=== PATIENT | female | born 1990 | race Caucasian/White ===

== ENCOUNTER 2018-01-26 16:02 | Inpatient (IN) | payer OTHER ==
[2018-01-26] VITALS (19 sets, daily range): BP systolic 114–119; BP diastolic 71–78; PULSE 70–89; RESP 16–18; TEMP 97.7–98.1; O2SAT 99
[2018-01-26] MEDS ORDERED: SODIUM CHLOR 0.9% 1000 ML INJ 1,000 ML OTHER PRN (17:02)
[2018-01-26] MEDS ORDERED: CITRIC ACID-SODIUM CITRATE LIQ 30 ML UDC PO SCH (17:15)
[2018-01-26] MEDS ORDERED: LIDOCAINE HCL 1% 50 ML VIAL I-DERMAL PRN (17:15)
[2018-01-26] MEDS ORDERED: MINERAL OIL 10 ML VIAL TOPICAL PRN (17:15)
[2018-01-26] MEDS ORDERED: LIDOCAINE HCL 1% 50 ML VIAL INFIL PRN (17:15)
[2018-01-26] MEDS ORDERED: SODIUM CHLORID 0.9% 500 ML INJ 500 ML IV PRN (17:15)
[2018-01-26] MEDS ORDERED: OXYTOCIN 30 UNITS-500ML PREMIX 500 ML IV ONE (17:15)
[2018-01-26] MEDS ORDERED: ONDANSETRON HCL 4 MG/2 ML VIAL IV PUSH PRN (17:15)
--- NOTE | 2018-01-26 17:18 | HHI.HP ---
HPI Chief Complaint labor induction, postdates, oligohydramnios Date Seen: January 26, 2018 Travel History International Travel<30 Days: No Contact w/Intl Traveler<30Days: No Known Affected Area: No History of Present Illness HPI 27 yo G1 with EDC 01/25/18 presents today for routine OB visit, ultrasound for postdates, found to have oligohydramnios, RAVINDRA 4cm. Pt denies regular contractions, leakage of fluid, or vaginal bleeding. Endorses good movement. Pain minimal, 1/10 pressure in low pelvis. Weeks Gestation: 40 Para: 0 : 1 Last Menstrual Period: Apr 20, 2017 Miscarriage: 0 : 0 History Past Medical History Narrative Medical denies significant Obstetric History Obstetric History G1 = current, male Past Surgical History Narrative Surgical denies Family History Family History: Negative Social History Alcohol Use: No Tobacco Use: No Substance Abuse: No Allergies-Medications (Allergen,Severity, Reaction): Coded Allergies: No Known Allergies (Unverified , 01/26/18) Review of Systems General / Constitutional: Weight Gain, No: Fever, Chills, Other Eyes: No: Diploplia, Blurred Vision, Visual changes, Pain, Photophobia HENT: No: Headaches, Vertigo, Lightheadedness Cardiovascular: No: Irregular Rhythm, Chest Pain or Discomfort, Palpitations, Tachycardia, Syncope, Varicosities, Edema, Cyanosis Respiratory: No: Cough, Short of Breath, Other Gastrointestinal: No: Nausea, Vomiting, Diarrhea Genitourinary: Pelvic Pain (pressure), No: Decreased Urinary Output, Oliguria Musculoskeletal: No: Limited ROM, Weakness, Cramping, Edema, Pain Skin: No Rash, No Itching, No Dryness, No Lumps, No Change in Pigmentation, No Change in Nails, No Alopecia, No Lesions Neurologic: No: Weakness, Dizziness, Syncope, Focal Abnormalities, Coordination Problem, Headache, Slurred Speech, Seizures Psychiatric: No: Depression, Suicidal Ideations, Homicidal Ideation Endocrine: No: Heat Intolerance, Cold Intolerance, Polydipsia, Polyuria, Other Physical Exam Narrative GENERAL: Well-nourished, well-developed patient. SKIN: Warm and dry. HEAD: Normocephalic and atraumatic. EYES: No scleral icterus. No injection or drainage. ENT: No nasal drainage noted. Mucous membranes pink. Airway patent. NECK: Supple, trachea midline. No JVD. CARDIOVASCULAR: Regular rate and rhythm without murmurs, gallops, or rubs. RESPIRATORY: Breath sounds equal bilaterally. No accessory muscle use. BREASTS: deferred ABDOMEN/GI: Abdomen soft, non-tender, bowel sounds present, no rebound, no guarding Gravid to [41] weeks size Fundal Height: [-] GENITOURINARY: / posterior FHT's: Category:6/8 BPP in office, RAVINDRA 4cm, no breathing EXTREMITIES: No cyanosis or edema. BACK: Nontender without obvious deformity. No CVA tenderness. NEUROLOGICAL: Awake and alert. Motor and sensory grossly within normal limits. Five out of 5 muscle strength in all muscle groups. Normal speech. Caprini VTE Risk Assessment Caprini VTE Risk Assessment: No/Low Risk (score <= 1) VTE Pharm Contraindication: Epidural catheter Caprini Risk Assessment Model Point Value = 1 Point Value = 2 Point Value = 3 Point Value = 5 Age 41-60 Minor surgery BMI > 25 kg/m2 Swollen legs Varicose veins or History of unexplained or recurrent spontaneous Oral contraceptives or hormone replacement Sepsis (< 1 month) Serious lung disease, including pneumonia (< 1 month) Abnormal pulmonary function Acute myocardial infarction Congestive heart failure (< 1 month) History of inflammatory bowel disease Medical patient at bed rest Age 61-74 Arthroscopic surgery Major open surgery (> 45 min) Laparoscopic surgery (> 45 min) Malignancy Confined to bed (> 72 hours) Immobilizing plaster cast Central venous access Age >= 75 History of VTE Family history of VTE Factor V Leiden Prothrombin [id number] Lupus anticoagulant Anticardiolipin antibodies Elevated serum homocysteine Heparin-induced thrombocytopenia Other congenital or acquired thrombophilia Stroke (< 1 month) Elective arthroplasty Hip, pelvis, or leg fracture Acute spinal cord injury (< 1 month) Prophylaxis Regimen Total Risk Factor Score Risk Level Prophylaxis Regimen 0-1 Low Early ambulation 2 Moderate Order ONE of the following: *Sequential Compression Device (SCD) *Heparin 5000 units SQ BID 3-4 Higher Order ONE of the following medications: *Heparin 5000 units SQ TID *Enoxaparin/Lovenox 40 mg SQ daily (WT < 150 kg, CrCl > 30 mL/min) *Enoxaparin/Lovenox 30 mg SQ daily (WT < 150 kg, CrCl > 10-29 mL/min) *Enoxaparin/Lovenox 30 mg SQ BID (WT < 150 kg, CrCl > 30 mL/min) AND/OR *Sequential Compression Device (SCD) 5 or more Highest Order ONE of the following medications: *Heparin 5000 units SQ TID (Preferred with Epidurals) *Enoxaparin/Lovenox 40 mg SQ daily (WT < 150 kg, CrCl > 30 mL/min) *Enoxaparin/Lovenox 30 mg SQ daily (WT < 150 kg, CrCl > 10-29 mL/min) *Enoxaparin/Lovenox 30 mg SQ BID (WT < 150 kg, CrCl > 30 mL/min) AND *Sequential Compression Device (SCD) Data Data Vital Signs Reviewed: Yes Orders Orders Admit To Inpatient (01/26/18 ) Code Status (01/26/18 17:) Vital Signs (Adult) .Per protocol (01/26/18 17:02) Activity Oob Ad Arline (01/26/18 17:) Heart (01/26/18:) Amnioinfusion (01/26/18 17:) Urinary Catheter Management .ONCE (01/26/18 17:02) Diet Liquid (01/27/18 Breakfast) Lactated Ringer's 1000 Ml Inj (Lr 1000 M (01/26/18 17:02) Sodium Chlorid 0.9% 500 Ml Inj (Ns 500 M (01/26/18 17:15) Sodium Chlor 0.9% 1000 Ml Inj (Ns 1000 M (01/26/18 17:22) Lidocaine 1% Inj (50 Ml) (Xylocaine 1% I (01/26/18 17:15) Citric Acid-Sodium Citrate Liq (Bicitra (01/26/18 17:15) Ondansetron Inj (Zofran Inj) (01/26/18 17:15) Fentanyl Inj (Fentanyl Inj) (01/26/18 17:15) Fentanyl Inj (Fentanyl Inj) (01/26/18 17:15) Complete Blood Count With Diff (01/26/18 17:02) Hold Clot (01/26/18 17:02) Abo/Rh Blood Type (01/26/18:02) Urinalysis - C+S If Indicated (01/26/18 17:02) Drug Screen, Random Urine (01/26/18 17:02) Ob/Psych Drug Screen, Urine (01/26/18 17:02) Resp Oxygen Non Rebreathe Mask (01/26/18 ) ^ Epidural / Intrathecal Infus (01/26/18 17:02) Oxytocin 30 Units-500ml Premix (Pitocin (01/26/18 17:15) Lidocaine 1% Inj (50 Ml) (Xylocaine 1% I (01/26/18 17:15) Light Mineral Oil (Muri-Lube Oil) (01/26/18 17:15) Diet Regular Basic (01/26/18 Dinner) ^ Labor Induction (01/26/18 17:02) ^ Saline Lock (01/26/18 17:02) ^ Vaginal Insert (01/26/18 17:02) ^ Vaginal Lavage (01/26/18 17:02) Heart (01/26/18 17:02) Sodium Chlor 0.9% 1000 Ml Inj (Ns 1000 M (01/26/18 17:02) Dinoprostone Vag Insert (Cervidil Vag In (01/26/18 17:15) Inpatient Certification (01/26/18 ) Specimen To Be Collected PRN (01/26/18 17:02) Specimen To Be Collected PRN (01/26/18 17:02) Group B Strep: Negative Assessment/Plan Problem List: (1) Oligohydramnios in gaspar in third trimester ICD Codes: O41.03X0 - Oligohydramnios, third trimester, not applicable or unspecified Status: Acute Assessment and Plan 27 yo G1 with gaspar IUP at 40w1d by LMP c/w 7 wk sonogram, admit for labor induction due to oligohydramnios, post-due 1) IOL for oligo: will start with cervidil overnight and re-evaluate in AM for add'tl interventions as necessary; pt is aware of risks of induction including risk of failure, risk of need for , consents to any procedures as indicated 2) GBS neg 3) status: EFW 84%tile with AC 96%tile at 36 wks; pt aware may fail induction due to possible CPD Discharge Planning routine for 2-3d PP Yuli Edgar MD January 26, 2018 17:18
[2018-01-26] MEDS ORDERED: SODIUM CHLOR 0.9% 1000 ML INJ 1,000 ML IV PRN (17:22)
[2018-01-26] MEDS ORDERED: DINOPROSTONE 10 MG VAG INSERT VAGINAL ONE (18:00)
[2018-01-26 18:12] LABS: AMORPHOUS SEDIMENT, URINE RARE; BACTERIA, URINE RARE /hpf; BILIRUBIN, URINE NEG (NEG); BLOOD, URINE NEG (NEG); GLUCOSE,URINE NEG (NEG); KETONE, URINE 10 mg/dL (NEG); MUCUS URINE MANY /lpf (OCC); NITRITE,URINE NEG (NEG); SQUAMOUS EPITHELIAL CELL URINE 17 /hpf (0-5); URINE COLOR YELLOW (YELLW/STRAW); URINE LEUKOCYTE ESTERASE MOD (NEG)
[2018-01-26 18:14] LABS: AUTOMATED NEUTROPHIL # 8.1 TH/MM3 (1.8-7.7); BASOPHIL % 0.4 % (0.0-2.0); EOSINOPHIL # 0.2 TH/MM3 (0-0.4); HEMATOCRIT 34.5 % (35.0-46.0); HEMOGLOBIN 11.8 GM/DL (11.6-15.3); LYMPHOCYTE # 1.9 TH/MM3 (1.0-4.8); MEAN CELL VOLUME 87.9 FL (80.0-100.0); MEAN CORPUSCULAR HGB CONC 34.1 % (32.0-36.0); MEAN PLATELET VOLUME 8.7 FL (7.0-11.0); MONOCYTE # 0.9 TH/MM3 (0-0.9); NEUT % 72.6 % (16.0-70.0); PLATELET COUNT 309 TH/MM3 (150-450); RED BLOOD COUNT 3.92 MIL/MM3 (4.00-5.30); RED CELL DISTRIBUTION WIDTH 13.2 % (11.6-17.2); WHITE BLOOD COUNT 11.2 TH/MM3 (4.0-11.0)
[2018-01-26] MEDS: LACTATED RINGER'S 1000 ML INJ 1,000 ML IV PRN ×2 (18:16→23:17)
[2018-01-27] VITALS (52 sets, daily range): BP systolic 92–108; BP diastolic 56–64; PULSE 61–92; RESP 9–18; TEMP 97.9–98.5; O2SAT 98–100
--- NOTE | 2018-01-27 07:54 | PD.LABORPN ---
Subjective Subjective feeling some mild back pain, not feeling regular contractions currently, pain 2/ 10 Objective Vital Signs Vital Signs Date Time Temp Pulse Resp B/P (MAP) Pulse Ox O2 Delivery O2 Flow Rate FiO2 01/27/18 07:09 97.9 01/27/18 07:05 100 01/27/18 07:05 82 01/27/18 07:00 65 01/27/18 07:00 98 01/27/18 06:45 82 01/27/18 06:40 68 01/27/18 06:35 69 01/27/18 06:30 70 01/27/18 05:26 16 01/27/18 05:25 72 01/27/18 05:20 73 01/27/18 05:00 81 01/27/18 04:55 81 01/27/18 04:50 74 01/27/18 04:45 70 01/27/18 04:40 80 01/27/18 04:35 66 01/27/18 04:30 74 01/27/18 03:25 67 01/27/18 03:20 67 01/27/18 03:15 67 01/27/18 03:10 68 01/27/18 03:05 73 01/27/18 03:00 66 01/27/18 02:25 65 01/27/18 02:20 70 01/27/18 02:15 70 01/27/18 02:10 66 01/27/18 02:05 68 01/27/18 02:00 69 01/27/18 01:30 16 01/27/18 01:25 68 01/27/18 01:15 73 01/27/18 01:08 68 102/62 (75) 01/27/18 01:08 98.5 01/27/18 01:05 69 01/27/18 01:00 65 01/27/18 00:55 65 01/27/18 00:50 68 01/27/18 00:45 66 01/27/18 00:40 65 01/27/18 00:35 66 01/27/18 00:30 67 01/27/18 00:25 69 01/27/18 00:20 66 01/27/18 00:15 84 01/27/18 00:10 85 01/27/18 00:05 92 01/27/18 00:00 86 01/26/18 23:55 87 Objective Pelvic Exam: Cervix: [posterior] Dilatation: [3] Effacement: [50] Station: [-3] Presentation: [vtx] Membranes: AROM'd clear this check Uterine Contractions: [irregular on monitor; IUPC placed] FHT's: Category: [I] Baseline: [130s] Reactive: [y] Variability: [mod] Decels: [rare variables] Weeks Gestation: 40 Medical induction of labor?: Yes Medical induction start date: January 26, 2018 Artificial rupture of membrane: Yes Artificial ROM date: January 27, 2018 Assessment/Plan Problem List: (1) Oligohydramnios in gaspar in third trimester ICD Codes: O41.03X0 - Oligohydramnios, third trimester, not applicable or unspecified Status: Acute Assessment and Plan 27 yo G1 with gaspar IUP at 40w2d admit for term induction due to oligohydramnios 1) IOL: s/p cervidil x 6h overnight, was having recurrent variables so insert pulled early; tracing now Cat I, able to AROM and place IUPC this check, pitocin ordered 2) GBS neg 3) status: male, vertex, EFW 8.5# Yuli Edgar MD January 27, 2018 07:54
[2018-01-27] MEDS ORDERED: LACTATED RINGER'S 1000 ML INJ 1,000 ML IV PRN (09:00)
[2018-01-27] MEDS ORDERED: OXYTOCIN 30 UNITS-500ML PREMIX 500 ML IV PRN ×2 (09:00→18:15)
[2018-01-27] MEDS ORDERED: LACTATED RINGER'S 1000 ML INJ 1,000 ML IV SCH ×2 (09:00→18:14)
[2018-01-27] MEDS ORDERED: fentaNYL 2MCG-BUPIV 0.125% INJ 100 ML ONE (10:48)
[2018-01-27] MEDS ORDERED: ePHEDrine/NS 25 MG/5 ML SYRINGE ONE (10:48)
[2018-01-27] MEDS ORDERED: LIDOCAINE 2%/EPINEPHrine PF 1:200,000 20ML SDV ONE (10:53)
[2018-01-27] MEDS ORDERED: OXYTOCIN 10 UNIT/ML AMP IV ONE (12:00)
[2018-01-27] MEDS ORDERED: LIDOCAINE 2%/EPINEPHrine PF 1:200,000 20ML SDV OTHER ONE (12:00)
[2018-01-27] MEDS ORDERED: ceFAZolin INJ 1,000 MG VIAL IV ONE (12:00)
[2018-01-27] MEDS ORDERED: DEXAMETHASONE SOD PHOS 4 MG/ML VIAL IV ONE (12:00)
[2018-01-27] MEDS ORDERED: ONDANSETRON HCL 4 MG/2 ML VIAL IV ONE (12:00)
[2018-01-27] MEDS ORDERED: LACTATED RINGER'S 1000 ML INJ 1,000 ML IV ONE (12:00)
[2018-01-27] MEDS ORDERED: KETOROLAC TROMETHAMINE 30 MG/ML (IVP) VIAL IV PUSH ONE (12:00)
--- NOTE | 2018-01-27 12:24 | HHI.PR ---
ASSURANCE SENIOR Note Note Pt with subtle late decelerations despite good variability and accelerations between contractions; pitocin turned off, pt on L lateral recumbent and O2 by facemask; SVE 3/50/-3, higher station than prior visit, d/w due to these findings need to proceed with delivery via for non-reassuring heart tracing; pt & verbalize understanding, consents previously signed ; proceed to OR for delivery Yuli Edgar MD January 27, 2018 12:24
[2018-01-27] MEDS ORDERED: SODIUM CHLORIDE 0.9% FLUSH 10 ML FLUSH IV FLUSH SCH (13:15)
[2018-01-27] MEDS ORDERED: OXYTOCIN 30 UNITS-500ML PREMIX 500 ML IV ONE (13:15)
[2018-01-27] MEDS ORDERED: KETOROLAC TROMETHAMINE 60 MG/2 ML (IM) VIAL IM PRN (13:15)
[2018-01-27] MEDS ORDERED: ZOLPIDEM TARTRATE 5 MG TAB PO PRN (13:15)
[2018-01-27] MEDS ORDERED: ONDANSETRON HCL 4 MG/2 ML VIAL IV PUSH PRN (13:15)
[2018-01-27] MEDS ORDERED: ACETAMINOPHEN 325 MG TAB PO PRN (13:15)
[2018-01-27] MEDS ORDERED: ACETAMINOPHEN 1000 MG/100 ML 100 ML IV ONE ×3 (13:15→14:45)
[2018-01-27] MEDS ORDERED: SODIUM CHLORIDE 0.9% FLUSH 10 ML FLUSH IV FLUSH PRN (13:15)
--- NOTE | 2018-01-27 13:23 | PD.OB.DELI ---
Procedure Note Section Procedure Pre Op Diagnosis: (1) Non-reassuring electronic monitoring tracing (2) Oligohydramnios in gaspar in third trimester Post Op Diagnosis: (1) S/P primary low transverse (2) Non-reassuring electronic monitoring tracing (3) Oligohydramnios in gaspar in third trimester Performed by Yuli Edgar Procedure: Primary Low Transverse Sec Indication for delivery: Nonreassuring heart tracing (recurrent late decerations) Informed consent obtained: For anesthesia, For procedure Confirmed correct: Patient, Procedure, Site, Time-out taken Anesthesia: Epidural Medication prior to procedure: As documented in eMAR Monitoring during procedure: Blood pressure monitoring, doppler, Pulse oximetry Urinary catheter: Inserted using sterile technique, To dependent drainage Sterile preparation: With 10% povidone iodine (Betadine), With drapes to expose affected area Position: Supine with wedge to right side Operative Features Skin Incision: Pfannenstiel Uterine Incision: Low transverse w/knife / blunt ext Membranes Ruptured: Previously, Appearance of fluid (clear) Presentation: Vertex (malpresentation forehead presentation with extended neck) Delivery date: January 27, 2018 Delivery time: 12:51 Delivery of : Uneventful : Male One Minute : 9 Five Minute : 9 Weight: 6#15oz Status of infant: Viable, Cord blood, Umbilical cord, Nursery present Placenta delivered: Intact, Sent to pathology (due to non-reassuring heart tracing) Medications: Antibiotics (ancef 2g IV preoperatively) Estimated blood loss: 500 mL Procedure tolerated: Well Maternal Condition: Stable Condition: Stable Procedure in detail STAT section called after review of tracing with recurrent late decelerations despite repositioning, turning off IV pitocin, O2 by facemask; SVE 3/50/-3, higher station on recheck than when initially AROM'd in early AM; concern for extension of neck with malpresentation; epidural already in place, working well, betadyne splash, no count but Xray performed postop with no abnormal findings; infant with forehead presentation and neck extended prior to flexion for delivery; cord blood & segment taken, placenta sent to pathology ; patient and infant both did well, nursery status Yuli Edgar MD January 27, 2018 13:23
[2018-01-27] MEDS ORDERED: ceFAZolin 2 GM PREMIX 50 ML IV SCH (13:30)
--- NOTE | 2018-01-27 13:50 | RADRPT ---
EXAM DATE/TIME: 01/27/2018 13:07 [facility] COMPARISON: No previous studies available for comparison. INDICATIONS : Instrument count post emergency C section. MEDICAL HISTORY : Unobtainable SURGICAL HISTORY : Unobtainable. ENCOUNTER: Initial ACUITY: 1 day PAIN SCORE: Non-responsive. LOCATION: Bilateral abdomen. FINDINGS: The bowel gas pattern is nonobstructive. There is a rounded density overlying the pelvis presumed to represent the uterus. There is an elongated metallic radiodensity extending from the superior margin of the film in the right upper quadrant to the midline abdomen at L3-4 as well as additional elongate d areas of curvilinear radiodensity overlying the pelvis, left upper thigh and left midabdomen. CONCLUSION: Presumed radiodensities external to the patient as above. Naldo Glover MD on January 27, 2018 at 13:46 Board Certified Radiologist. This report was verified electronically.
[2018-01-27] MEDS ORDERED: OXYTOCIN 30 UNITS-500ML PREMIX 0 ML ONE (13:53)
--- NOTE | 2018-01-27 14:09 | MP ---
cc: Yuli Edgar MD DATE OF OPERATION: 01/27/2018 DATE OF : 1990 PREOPERATIVE DIAGNOSES: 1. Winn intrauterine at 40 weeks and 2 days. 2. Oligohydramnios. 3. Nonreassuring heart tones. POSTOPERATIVE DIAGNOSES: 1. Winn intrauterine at 40 weeks and 2 days. 2. Oligohydramnios. 3. Nonreassuring heart tones. 4. Status post primary low transverse delivery. SURGEON: Yuli Edgar MD VETERINARY SURGERY TECHNOLOGIST SURGEON: Elvis Torres MD INDICATIONS: Jeanette Love is a 27-year-old 1, para 1-0-0-1, who was seen and evaluated throughout her care with uneventful course. When she was seen for her postdates visit, which included ultrasound, the patient was found to have oligohydramnios with RAVINDRA of 4. As such, it was discussed that induction of labor was indicated. She was admitted on the evening of 01/26/2018, had Cervidil vaginal insert. After about 4-5 hours, the patient began to have repetitive variable decelerations. The Cervidil was pulled early. The patient was dranell well on her own and changed from 1-3 cm overnight without any additional augmentation method. When I saw the patient at around 7:30 in the morning on 01/27/2018, I evaluated her, was able to AROM with clear fluid and IUPC was placed to better qualify when contractions were occurring and how strong they were. The patient did progress to 4 cm, but at a certain point after the epidural was placed, the patient showed late decelerations with contractions. She had been on Pitocin at that time; it was turned off. She was placed in lateral recumbent positioning with oxygen by facemask. These maneuvers did not alleviate the nonreassuring decelerations. As such, decision was made for emergent delivery. PROCEDURE PERFORMED: Primary low transverse delivery. COMPLICATIONS: Due to the emergent nature of the delivery, a count was not performed beforehand, but x-ray was performed postoperatively and no abnormal findings noted. PROPHYLAXIS: Ancef 2 grams IV was given preoperatively. IV FLUID REPLACEMENT: Please see anesthesia record. URINE OUTPUT: Please see anesthesia record. ESTIMATED BLOOD LOSS: 500 mL. PREOPERATIVE FINDINGS: A vigorous viable male infant weighing 6 pounds, 15 ounces with Apgars of 9 and 9. was asynclitic malpresentation with forehead presentation and neck hyperextended prior to flexion for delivery. Normal-appearing placenta and uterus as well as tubes and ovaries. SPECIMENS: Includes Placenta to pathology as well as cord blood sample. PROCEDURE IN DETAIL: After verbally reviewing the informed consent, the patient was taken emergently to the operating room where a timeout was performed to identify the patient, the planned procedure and any known allergies to drugs or drug products. The abdomen and perineum were prepped with Betadine. Gottlieb catheter was placed using sterile technique and attention was turned abdominally where a Pfannenstiel type skin incision was made with a scalpel. This was carried down through the underlying layer of fascia with the scalpel. Using blunt dissection, the incision was extended laterally. Muscles were in the midline. Peritoneum was identified and entered bluntly with the surgeon's index finger and incision was extended bluntly. Bladder blade was placed. The scalpel was used to make a low transverse uterine incision. This was extended bluntly. The infant's head was grasped, flexed and delivered out through the incision with gentle fundal pressure. The rest of the 's body delivered easily. The was crying and vigorous upon delivery. Delayed cord clamping at 45 seconds was performed. The cord was then clamped and cut and the was handed off to the awaiting nursery staff. Cord blood segment and cord blood sample was taken. Placenta was delivered spontaneously with gentle cord traction and fundal massage. The uterus was exteriorized, cleared of all clots and debris with sterile moist lap sponges. Uterine incision was repaired in a double-layer with #1 chromic in a running locked layer, then in an imbricating layer with excellent hemostasis noted. The posterior cul-de-sac was irrigated and uterus was returned to the abdomen. Additional irrigation with suction was performed. Peritoneum was closed in a running layer with 2-0 chromic. The fascia was closed in a running layer with #1 Vicryl. Additional irrigation with suction was performed. The skin was cleaned and dried. The skin was closed in a subcuticular fashion with 4-0 Monocryl and standard dressing were placed. X-ray did come into the room and confirmed no evidence of any retained instruments or other abnormal findings as there had been no count prior due to the emergent nature of the . DISPOSITION: The patient tolerated the procedure well. Infant is nursery status. ESTIMATED LENGTH OF STAY: For both is 2-3 postoperative days. MD SHANDRA Sarmiento/SRINATH , 01:31 PM , 02:08 PM [facility]
[2018-01-27] MEDS ORDERED: EPIDURAL-DO NOT ADMINISTER ANTICOAGULANTS PRN (14:45)
[2018-01-27] MEDS ORDERED: EPIDURAL-DIPHENHYDRAMINE HCL 50 MG CAP PO PRN (14:45)
[2018-01-27] MEDS ORDERED: EPIDURAL-NO SYSTEMIC NARCOTICS PRN (14:45)
[2018-01-27] MEDS ORDERED: EPIDURAL-DIPHENHYDRAMINE HCL 50 MG/ML VIAL IV PUSH PRN (14:45)
[2018-01-27] MEDS ORDERED: EPIDURAL-NALOXONE HCL 0.4 MG/ML AMP IV PUSH PRN (14:45)
[2018-01-27] MEDS: IBUPROFEN 600 MG TAB PO PRN (23:56)
[2018-01-27] MEDS: DOCUSATE SODIUM 50 MG/SENNA 8.6 MG TAB PO PRN (23:57)
[2018-01-28] VITALS: BP 95/52; PULSE 64; RESP 16; TEMP 98.4
[2018-01-28 04:00] VITALS: BP 105/70; PULSE 72; RESP 18; TEMP 98
[2018-01-28] MEDS: IBUPROFEN 600 MG TAB PO PRN ×3 (05:43→21:40)
[2018-01-28 05:52] LABS: AUTOMATED NEUTROPHIL # 10.1 TH/MM3 (1.8-7.7); BASOPHIL % 0.2 % (0.0-2.0); EOSINOPHIL # 0.2 TH/MM3 (0-0.4); EOSINOPHIL % 1.1 % (0.0-4.0); HEMATOCRIT 29.3 % (35.0-46.0); LYMPH % 20.2 % (9.0-44.0); LYMPHOCYTE # 2.9 TH/MM3 (1.0-4.8); MEAN CELL VOLUME 88.1 FL (80.0-100.0); MEAN CORPUSCULAR HGB CONC 34.1 % (32.0-36.0); MONO % 7.3 % (0.0-8.0); NEUT % 71.2 % (16.0-70.0); PLATELET COUNT 284 TH/MM3 (150-450); RED BLOOD COUNT 3.33 MIL/MM3 (4.00-5.30); RED CELL DISTRIBUTION WIDTH 13.1 % (11.6-17.2); WHITE BLOOD COUNT 14.3 TH/MM3 (4.0-11.0)
[2018-01-28 08:30] VITALS: BP 103/75; PULSE 77; RESP 16; TEMP 98
--- NOTE | 2018-01-28 10:29 | HHI.OB ---
Subjective Post Operative Day: 1 Remarks POD#1, emergent primary LTCS, Stable,doing well. Objective Vitals/I&O Vital Signs Date Time Temp Pulse Resp B/P (MAP) Pulse Ox O2 Delivery O2 Flow Rate FiO2 01/28/18 04:00 98.0 72 18 105/70 (82) 01/28/18 00:00 98.4 64 16 95/52 (66) 01/27/18 20:00 98.2 70 18 92/56 (68) 01/27/18 15:53 9 98 01/27/18 15:52 97.9 61 18 108/64 (79) Result Diagram: 01/28/18 0526 Objective Remarks GENERAL: Well-nourished, well-developed patient. CARDIOVASCULAR: Regular rate and rhythm without murmurs, gallops, or rubs. RESPIRATORY: Breath sounds equal bilaterally. No accessory muscle use. ABDOMEN/GI: Abdomen soft, non-tender, bowel sounds present. Incision: Clean, dry and intact. Fundus: Firm, non-tender at umbilicus. GENITOURINARY: Light to moderate bleeding. EXTREMITIES: No cyanosis or edema, non-tender, without signs of DVT. Medications and IVs Current Medications Medications (Trade) Dose Ordered Sig/Janet Route Start Time Stop Time Status Last Admin Lactated Ringer's 1,000 ml @ 100 mls/hr Q10H IV 01/27/18 18:14 01/28/18 14:13 01/27/18 04:00 Oxytocin 500 ml @ 100 mls/hr UNSCH X1 PRN IV 01/27/18 18:15 01/28/18 18:14 (NS Flush) 2 ml BID IV FLUSH 01/27/18 13:15 (NS Flush) 2 ml UNSCH PRN IV FLUSH 01/27/18 13:15 (Mylicon Chew) 80 mg QID PRN PO 01/27/18 13:15 (Tylenol) 650 mg Q6H PRN PO 01/27/18 13:15 01/28/18 05:43 (Motrin) 600 mg Q6H PRN PO 01/27/18 13:15 01/28/18 05:43 (Toradol Inj) 30 mg Q6H PRN IM 01/27/18 13:15 01/28/18 13:14 (Percocet 5-325 Mg) 1 tab Q4H PRN PO 01/27/18 13:15 (Percocet 5-325 Mg) 2 tab Q4H PRN PO 01/27/18 13:15 (Phoebe-Colace) 2 tab Q12H PRN PO 01/27/18 13:15 01/27/18 23:57 (Ambien) 5 mg HS PRN PO 01/27/18 13:15 (M-M-R Ii Inj) 0.5 ml ONCE ONCE SQ 01/28/18 16:00 01/28/18 16:01 (Boostrix Inj) 0.5 ml ONCE ONCE IM 01/28/18 16:00 01/28/18 16:01 (Zofran Inj) 4 mg Q6H PRN IV PUSH 01/27/18 13:15 ([facility]) NO SYSTEMIC NARCOTICS TO BE GIVEN FO... UNSCH PRN .XX 01/27/18 14:45 01/28/18 14:44 (Narcan Inj) 0.4 mg UNSCH PRN IV PUSH 01/27/18 14:45 01/28/18 14:44 (Benadryl Inj) 25 mg Q6H PRN IV PUSH 01/27/18 14:45 01/28/18 14:44 (Benadryl) 50 mg Q6H PRN PO 01/27/18 14:45 01/28/18 14:44 ([facility] ALL NURSING DEPARTMENTS UNSCH PRN .XX 01/27/18 14:45 01/28/18 14:44 Assessment/Plan Problem List: (1) Oligohydramnios in gaspar in third trimester ICD Codes: O41.03X0 - Oligohydramnios, third trimester, not applicable or unspecified Status: Acute Assessment and Plan 27 yo G1 with gaspar IUP at 40w1d by LMP c/w 7 wk sonogram, admit for labor induction due to oligohydramnios, post-due 1) IOL for oligo: will start with cervidil overnight and re-evaluate in AM for add'tl interventions as necessary; pt is aware of risks of induction including risk of failure, risk of need for , consents to any procedures as indicated 2) GBS neg 3) status: EFW 84%tile with AC 96%tile at 36 wks; pt aware may fail induction due to possible CPD 01/28/ : POD#1, Stable,transitioning well. Discharge Planning routine for 2-3d PP Attending Attestation seen by Daniel Dickinson MD January 28, 2018 10:29
[2018-01-28] MEDS: SIMETHICONE 80 MG CHEWABLE TAB PO PRN ×2 (11:52→21:39)
[2018-01-28] MEDS: oxyCODONE/ACETAMINOPHEN 5 MG/325 MG TAB PO PRN ×3 (11:52→21:40)
[2018-01-28] MEDS: DOCUSATE SODIUM 50 MG/SENNA 8.6 MG TAB PO PRN (11:52)
[2018-01-28] MEDS ORDERED: MEASLES, MUMPS, RUBELLA VACCINE 0.5 ML VIAL SQ ONE (16:00)
[2018-01-28] MEDS ORDERED: DIPHTH/TETANUS/ACEL PERTUSSIS (BOOSTER) 0.5 ML VIAL/PFS IM ONE (16:00)
--- NOTE | 2018-01-28 16:08 | HHI.DCPOC ---
Discharge Care Plan Diagnosis: (1) Oligohydramnios in gaspar in third trimester (2) Non-reassuring electronic monitoring tracing (3) S/P primary low transverse Your Health Problems Are: delivery Report Symptoms to Your Doctor -Temperature above 100.5 degrees -Redness, of incision or excessive or foul smelling drainage -Unusual pain or calf pain -Increased vaginal bleeding -Painful or difficulty urinating -Feelings of extreme sadness or anxiety after 2 weeks Goals to Promote Your Health * To prevent worsening of your condition and complications * To maintain your health at the optimal level Directions to Meet Your Goals Take your medications as prescribed Follow your dietary instruction Follow activity as directed Ensure plenty of rest for recovery Drink fluids for hydration Keep your appointments as scheduled Take your immunizations and boosters as scheduled If your symptoms worsen call your PCP, if no PCP go to Urgent Care Center or Emergency Room Smoking is Dangerous to Your Health. Avoid second hand smoke Call the 24-hour crisis hotline for domestic abuse at Cristóbal Cortez MD January 28, 2018 16:08
[2018-01-28 20:00] VITALS: BP 118/75; PULSE 60; RESP 18; TEMP 98.3
[2018-01-29] MEDS: oxyCODONE/ACETAMINOPHEN 5 MG/325 MG TAB PO PRN ×4 (03:21→22:04)
[2018-01-29] MEDS: IBUPROFEN 600 MG TAB PO PRN ×3 (03:21→18:14)
--- NOTE | 2018-01-29 09:52 | HHI.OB ---
Subjective Post Operative Day: 2 Remarks doing well, pain controlled, VB < menses, voiding, ambulating, ready for d/c home. Objective Vitals/I&O Vital Signs Date Time Temp Pulse Resp B/P (MAP) Pulse Ox O2 Delivery O2 Flow Rate FiO2 01/28/18 20:00 98.3 18 01/28/18 20:00 60 118/75 (89) Result Diagram: 01/28/18 0526 Objective Remarks GENERAL: Well-nourished, well-developed patient. CARDIOVASCULAR: Regular rate and rhythm without murmurs, gallops, or rubs. RESPIRATORY: Breath sounds equal bilaterally. No accessory muscle use. ABDOMEN/GI: Abdomen soft, non-tender, bowel sounds present. Incision: Clean, dry and intact. Fundus: Firm, non-tender at umbilicus. GENITOURINARY: Light to moderate bleeding. EXTREMITIES: No cyanosis or edema, non-tender, without signs of DVT. Medications and IVs Current Medications Medications (Trade) Dose Ordered Sig/Janet Route Start Time Stop Time Status Last Admin (NS Flush) 2 ml BID IV FLUSH 01/27/18 13:15 (NS Flush) 2 ml UNSCH PRN IV FLUSH 01/27/18 13:15 (Mylicon Chew) 80 mg QID PRN PO 01/27/18 13:15 01/28/18 21:39 (Tylenol) 650 mg Q6H PRN PO 01/27/18 13:15 01/28/18 05:43 (Motrin) 600 mg Q6H PRN PO 01/27/18 13:15 01/29/18 03:21 (Percocet 5-325 Mg) 1 tab Q4H PRN PO 01/27/18 13:15 (Percocet 5-325 Mg) 2 tab Q4H PRN PO 01/27/18 13:15 01/29/18 03:21 (Phoebe-Colace) 2 tab Q12H PRN PO 01/27/18 13:15 01/28/18 11:52 (Ambien) 5 mg HS PRN PO 01/27/18 13:15 (Zofran Inj) 4 mg Q6H PRN IV PUSH 01/27/18 13:15 Assessment/Plan Problem List: (1) Oligohydramnios in gaspar in third trimester ICD Codes: O41.03X0 - Oligohydramnios, third trimester, not applicable or unspecified Status: Acute Assessment and Plan 27 yo s/p PLTCS at 40w2d for NRHTS 1. POD #2: AF, VSS, continue routine post op care, d/c home today, discussed precautions, expectations and follow up. -male , s/p circ. . Cristóbal Cortez MD January 29, 2018 09:52
[2018-01-29] MEDS ORDERED: IBUP-232 PO (09:53)
[2018-01-29] MEDS ORDERED: PERC5TAB12 PO (09:54)
[2018-01-29 21:09] VITALS: BP 122/81; PULSE 90; RESP 19; TEMP 98.3
[2018-01-30] MEDS: DOCUSATE SODIUM 50 MG/SENNA 8.6 MG TAB PO PRN (03:02)
[2018-01-30] MEDS: IBUPROFEN 600 MG TAB PO PRN (03:02)
--- NOTE | 2018-01-30 09:09 | HHI.OB ---
Subjective Post Operative Day: 3 Remarks nursing well pain controlled no issues today Objective Vitals/I&O Vital Signs Date Time Temp Pulse Resp B/P (MAP) Pulse Ox O2 Delivery O2 Flow Rate FiO2 01/29/18 21:09 98.3 90 19 122/81 (95) Result Diagram: 01/28/18 0526 Objective Remarks GENERAL: Well-nourished, well-developed patient. CARDIOVASCULAR: Regular rate and rhythm without murmurs, gallops, or rubs. RESPIRATORY: Breath sounds equal bilaterally. No accessory muscle use. ABDOMEN/GI: Abdomen soft, non-tender, bowel sounds present. Incision: Clean, dry and intact. Fundus: Firm, non-tender at umbilicus. GENITOURINARY: Light to moderate bleeding. EXTREMITIES: No cyanosis or edema, non-tender, without signs of DVT. Medications and IVs Current Medications Medications (Trade) Dose Ordered Sig/Janet Route Start Time Stop Time Status Last Admin (NS Flush) 2 ml BID IV FLUSH 01/27/18 13:15 (NS Flush) 2 ml UNSCH PRN IV FLUSH 01/27/18 13:15 (Mylicon Chew) 80 mg QID PRN PO 01/27/18 13:15 01/28/18 21:39 (Tylenol) 650 mg Q6H PRN PO 01/27/18 13:15 01/28/18 05:43 (Motrin) 600 mg Q6H PRN PO 01/27/18 13:15 01/30/18 03:02 (Percocet 5-325 Mg) 1 tab Q4H PRN PO 01/27/18 13:15 01/29/18 22:04 (Percocet 5-325 Mg) 2 tab Q4H PRN PO 01/27/18 13:15 01/29/18 03:21 (Phoebe-Colace) 2 tab Q12H PRN PO 01/27/18 13:15 01/30/18 03:02 (Ambien) 5 mg HS PRN PO 01/27/18 13:15 (Zofran Inj) 4 mg Q6H PRN IV PUSH 01/27/18 13:15 Assessment/Plan Problem List: (1) Oligohydramnios in gaspar in third trimester ICD Codes: O41.03X0 - Oligohydramnios, third trimester, not applicable or unspecified Status: Acute Assessment and Plan 27 yo s/p PLTCS at 40w2d for NRHTS 1. POD #2: AF, VSS, continue routine post op care, d/c home today, discussed precautions, expectations and follow up. -male , s/p circ. . 01/30/18 POD 3 doing well with no issues discussed post pre eclampsia, blood clots, depression home with motrin and 4 percocet RTO 2 weeks Latosha Shaikh MD January 30, 2018 09:09
== END 2018-01-30 11:43 | disposition home or self-care (01) | DRG 766 ==
LOC: H2EB 16:02 → H1EA 01-27 14:44
PROVIDERS: ADMIT Obstetrics & Gynecology; ATTEND Obstetrics & Gynecology
PROC: 3E0P7VZ Introduction of Hormone into Female Reproductive, Via Natural or Artificial Opening (ICD-10-PCS; 2018-01-26)
PROC: 10D00Z1 Extraction of Products of Conception, Low, Open Approach (ICD-10-PCS; principal; 2018-01-27)
PROC: 10907ZC Drainage of Amniotic Fluid, Therapeutic from Products of Conception, Via Natural or Artificial Opening (ICD-10-PCS; 2018-01-27)
PROC: 3E0R3BZ Introduction of Anesthetic Agent into Spinal Canal, Percutaneous Approach (ICD-10-PCS; 2018-01-27)
PROC: 00HU33Z Insertion of Infusion Device into Spinal Canal, Percutaneous Approach (ICD-10-PCS; 2018-01-27)
DX: O41.03X0 Oligohydramnios, third trimester, not applicable or unspecified (principal); O48.0 Post-term pregnancy; O32.8XX0 Maternal care for other malpresentation of fetus, not applicable or unspecified; O76 Abnormality in fetal heart rate and rhythm complicating labor and delivery; Z37.0 Single live birth; Z3A.40 40 weeks gestation of pregnancy
CPT/HCPCS: 59025; 74018; 80307; 81001; 82805; 85025; 86900; 86901; 88307; 90715; J0131; J0690; J1100; J1885; J2405; J2590; J7120